=== PATIENT | male | born 1980 | race Caucasian/White ===

== ENCOUNTER 2020-02-08 06:07 | Observation (INO) | payer OTHER ==
[~2020-02-08] VITALS: Ht 172.7 cm; Wt 82.3 kg
[2020-02-08] MEDS ORDERED: SODIUM CHLORIDE 0.9% 1,000ML IVBOLUS ONE (06:30)
[2020-02-08] MEDS ORDERED: SODIUM CHLORIDE FLUSH 10ML SYR IVF ONE (06:30)
[2020-02-08] MEDS ORDERED: ONDANSETRON 2MG/ML, 2ML IVPush ONE (06:30)
--- NOTE | 2020-02-08 06:36 | NUR ---
PT C/O ABD PAIN X1 DAY. PLACED VITAL SIGNS MONITORS. IV PLACED. LAB AT BEDSIDE. CALL LIGHT PLACED WITHIN REACH.
[2020-02-08] MEDS ORDERED: ONDANSETRON 2MG/ML, 2ML ONE ×2 (06:40→10:24)
[2020-02-08 06:54] LABS: BASOPHILS # (AUTO) 0.01 x10^3/uL (0-0.1); BASOPHILS % (AUTO) 0 % (0-1); EOSINOPHILS # (AUTO) 0.02 x10^3/uL (0-0.4); EOSINOPHILS % (AUTO) 0 % (1-7); LYMPHOCYTES # (AUTO) 0.35 x10^3/uL (1-3.4); LYMPHOCYTES % (AUTO) 7 % (22-44); MD NO; MEAN CORPUSCULAR HEMOGLOBIN 32.6 pg (27.5-34.5); MEAN CORPUSCULAR HGB CONC 33.6 g/dL (33.2-36.2); MEAN PLATELET VOLUME 8.7 fL (7.4-10.4); MONOCYTES # (AUTO) 0.07 x10^3/uL (0.2-0.8); MONOCYTES % (AUTO) 1 % (2-9); NEUTROPHILS # (AUTO) 4.73 x10^3/uL (1.8-6.8); NEUTROPHILS % (AUTO) 91 % (42-75); PLATELET COUNT 174 x10^3/uL (130-400); RED BLOOD COUNT 4.55 x10^6/uL (4.38-5.82); RED CELL DISTRIBUTION WIDTH 12.8 % (9.4-14.8)
--- NOTE | 2020-02-08 06:57 | NUR ---
REPORT GIVEN TO JHONATHAN CUELLAR.
--- NOTE | 2020-02-08 07:00 | NUR ---
REPORT FROM AMOL, ASSUME CARE OF PT AT THIS TIME. PT PROVIDED URINAL FOR UA. WARM BLANKET PROVIDED PER REQUEST.
[2020-02-08 07:01] LABS: ALANINE AMINOTRANSFERASE 33 U/L (12-78); ALBUMIN 4.2 g/dL (3.4-5.0); ANION GAP 12 mmol/L (5-15); CALCIUM 9.4 mg/dL (8.5-10.1); CHLORIDE 108 mmol/L (98-107)
[2020-02-08 07:03] LABS: ALKALINE PHOSPHATASE 62 U/L (45-117); BILIRUBIN,TOTAL 1.4 mg/dL (0.2-1.0); TOTAL PROTEIN 7.7 g/dL (6.4-8.2)
--- NOTE | 2020-02-08 07:11 | NUR ---
PT UNABLE TO PROVIDE UA. PT UPDATED ON RESULTS. PT STATES "FEELING BETTER". LIGHTS DIMMED. VSS/UPDATED IN COMPUTER. CALL LIGHT WITHIN REACH.
--- NOTE | 2020-02-08 07:24 | NUR ---
PT TO CT.
[2020-02-08] MEDS ORDERED: MORPHINE SULFATE 4 MG/ML, 1ML IVPush PRN (07:30)
--- NOTE | 2020-02-08 07:45 | NUR ---
CT RESULTS BACK, PT FOR RECHECK. PT IN GOWN, ALL OTHER CLOTHING REMOVED AND TO BELONGING BAG. PT'S LAST MEAL LUNCH YESTERDAY, GATORADE AND WATER AT 0300.
[2020-02-08] MEDS ORDERED: OMNIPAQUE 350 MG/ML, 100ML BOTTLE ONE ×2 (07:46→08:25)
[2020-02-08] MEDS ORDERED: CEFOTETAN PMX 1GM/50ML 50 ML ONE (08:09)
[2020-02-08] MEDS ORDERED: CEFOTETAN PMX 1GM/50ML 50 ML IV ONE (08:30)
--- NOTE | 2020-02-08 08:33 | NUR ---
CEFOTETAN INFUSING. RAPID COVID SWAB COMPLETED, WALKED TO LAB.
--- NOTE | 2020-02-08 08:43 | NUR ---
REPORT TO MARY JO CADE READY FOR TRANSPORT TO FLOOR.
--- NOTE | 2020-02-08 08:59 | NUR ---
REPORT TO YAYA OR.
[2020-02-08] MEDS ORDERED: BUPIVACAINE/PF-EPI 0.5% 1:200K ONE (09:23)
[2020-02-08 09:26] VITALS: BP 112/65
[2020-02-08] MEDS ORDERED: CHLORHEXIDINE 15 ML UDC ONE (09:31)
[2020-02-08] MEDS ORDERED: MIDAZOLAM 1 MG/ML, 2ML ONE (09:56)
[2020-02-08] MEDS ORDERED: FENTANYL PF 100 MCG/2ML ONE ×2 (09:56→10:14)
[2020-02-08] MEDS ORDERED: CHLORHEXIDINE 15 ML UDC MM ONE (10:00)
[2020-02-08] MEDS ORDERED: BUPIVACAINE/EPI 0.5% 1:200K IM ONE (10:22)
[2020-02-08] MEDS ORDERED: NEOSTIGMINE 1 MG/ML, 10ML ONE (10:24)
[2020-02-08] MEDS ORDERED: SUCCINYLCHOLINE 20 MG/ML, 10ML ONE (10:24)
[2020-02-08] MEDS ORDERED: ROCURONIUM 10MG/ML,5ML ONE (10:24)
[2020-02-08] MEDS ORDERED: PROPOFOL 10 MG/ML, 20ML ONE (10:24)
[2020-02-08] MEDS ORDERED: GLYCOPYRROLATE 0.2MG/1ML, 5ML ONE (10:24)
[2020-02-08] MEDS ORDERED: CEFAZOLIN 1,000 MG ONE (10:24)
[2020-02-08] MEDS ORDERED: LIDOCAINE-MPF 2% ,5ML ONE (10:24)
[2020-02-08] MEDS ORDERED: DEXAMETHASONE 4 MG/ML, 1ML ONE (10:24)
[2020-02-08] MEDS ORDERED: ACETAMINOPHEN 325 MG TABLET PO PRN (10:30)
[2020-02-08] MEDS ORDERED: PROMETHAZINE 25 MG/ML, 1ML IVPush PRN (10:30)
[2020-02-08] MEDS ORDERED: PROMETHAZINE 25 MG SUPP PR PRN (10:30)
[2020-02-08] MEDS ORDERED: FENTANYL PF 100 MCG/2ML IV PRN (10:30)
[2020-02-08] MEDS ORDERED: OXYcodone 5 MG/5 ML ORAL.SOL UDC PO PRN (10:30)
[2020-02-08] MEDS ORDERED: ONDANSETRON 2MG/ML, 2ML IVPush PRN (10:30)
[2020-02-08] MEDS ORDERED: LORazepam 2 MG/ML, 1ML IVPush PRN (10:30)
[2020-02-08] MEDS ORDERED: MEPERIDINE/PF 25MG/0.5ML IVPush PRN (10:30)
[2020-02-08] MEDS ORDERED: HYDROmorphone 1 MG/ML, 1ML INJ IVPush PRN (10:30)
[2020-02-08] MEDS ORDERED: MEPERIDINE/PF 25MG/ML,1ML ONE (10:53)
[2020-02-08] MEDS ORDERED: SUGAMMADEX 200 MG/2 ML IVPush ONE (10:58)
[2020-02-08] MEDS ORDERED: KETOROLAC 30 MG/1 ML ONE (11:05)
[2020-02-08] MEDS ORDERED: MEPERIDINE/PF 25MG/0.5ML IVPush ONE (11:30)
[2020-02-08] MEDS ORDERED: KETOROLAC 30 MG/1 ML IVPush ONE (11:30)
[2020-02-08 14:46] VITALS: BP 113/68
[2020-02-08] MEDS ORDERED: OXYC-302 PO (14:47)
[2020-02-08] MEDS ORDERED: POLY17PO5 PO (14:48)
== END 2020-02-08 15:30 | disposition home or self-care (01) ==
LOC: ED 06:39 → EDIP 08:14 → 4NE 08:54 → DCLOUNGE 15:23
PROVIDERS: ADMIT Colon & Rectal Surgery; ATTEND Colon & Rectal Surgery
DX: K35.80 Unspecified acute appendicitis (principal); R11.2 Nausea with vomiting, unspecified
CPT/HCPCS: 36415; 44970; 74177; 80053; 85025; 87635; 88304; 96361; 96374; 96375; 99285; C1729; G0378; J0330; J0690; J1100; J1885; J2175; J2250; J2405; J2704; J2710; J3010; J3490; J7030; Q9967

== ENCOUNTER 2020-02-10 15:23 | Emergency (ER) | payer OTHER ==
[~2020-02-10] VITALS: Ht 172.7 cm; Wt 86.6 kg
[~2020-02-10 15:23] MED LIST: OXYC-302 PO; POLY17PO5 PO
--- NOTE | 2020-02-10 15:50 | NUR ---
FIRST CONTACT WITH PT. PT HAS APPENDIX REMOVED ON WEDNESDAY, NOW I HAVE A FEVER. PT DENIES N/V/ABD PAIN. NO REDNESS/SWELLING/PAIN ON SURGICAL WOUND. PT'S AOX4. RESPS EVEN AND UNLABORED. BP/SPO2 MONITORS IN PLACE. CALL LIGHT WITHIN REACH/ EDMD AT BEDSIDE TO EVALUATE AT THIS TIME.
--- NOTE | 2020-02-10 15:53 | NUR ---
PT AMB TO BR WITH STEADY GAIT. URINE CUP GIVEN.
[2020-02-10] MEDS ORDERED: SODIUM CHLORIDE FLUSH 10ML SYR IVF ONE (16:00)
--- NOTE | 2020-02-10 16:01 | NUR ---
URINE COLLECTED AND UA SENT.
[2020-02-10 16:18] LABS: MICROSCOPIC NOT IND
[2020-02-10 16:27] LABS: BASOPHILS # (AUTO) 0.01 x10^3/uL (0-0.1); BASOPHILS % (AUTO) 0 % (0-1); EOSINOPHILS # (AUTO) 0.02 x10^3/uL (0-0.4); EOSINOPHILS % (AUTO) 1 % (1-7); LYMPHOCYTES # (AUTO) 0.39 x10^3/uL (1-3.4); LYMPHOCYTES % (AUTO) 8 % (22-44); MD NO; MEAN CORPUSCULAR HEMOGLOBIN 32.6 pg (27.5-34.5); MEAN CORPUSCULAR HGB CONC 33.8 g/dL (33.2-36.2); MEAN CORPUSCULAR VOLUME 96.6 fL (81-97); MEAN PLATELET VOLUME 8.8 fL (7.4-10.4); MONOCYTES # (AUTO) 0.38 x10^3/uL (0.2-0.8); MONOCYTES % (AUTO) 8 % (2-9); NEUTROPHILS # (AUTO) 3.97 x10^3/uL (1.8-6.8); NEUTROPHILS % (AUTO) 83 % (42-75); PLATELET COUNT 139 x10^3/uL (130-400); RED CELL DISTRIBUTION WIDTH 12.6 % (9.4-14.8)
[2020-02-10 16:29] LABS: ALBUMIN 3.4 g/dL (3.4-5.0); ANION GAP 7 mmol/L (5-15); CALCIUM 8.4 mg/dL (8.5-10.1); CHLORIDE 99 mmol/L (98-107); CREATININE 1.14 mg/dL (0.7-1.3)
--- NOTE | 2020-02-10 16:51 | NUR ---
PIV EST ON R HAND WITH NO COMPLICATIONS. PT TOLERATED WELL. WARM BLANKET GIVEN PER REQUEST.
--- NOTE | 2020-02-10 17:08 | NUR ---
ONE MORE WARM BLANKET GIVEN AT THIS TIME. PT'S AOX4. RESPS EVEN AND UNLABORED. BP/SPO2 MONITORS IN PLACE. CALL LIGHT WITHIN REACH. SITA. VSS.
--- NOTE | 2020-02-10 17:18 | NUR ---
Maricruz billingsley in [facility] - 02/10/20 at 1718 by RAMIN HOSPITALIST AT BEDSIDE AT THIS TIME.
--- NOTE | 2020-02-10 17:18 | NUR ---
PT TO CT AT THIS TIME.
[2020-02-10] MEDS ORDERED: OMNIPAQUE 350 MG/ML, 100ML BOTTLE ONE (17:36)
--- NOTE | 2020-02-10 17:52 | NUR ---
PT BACK TO ROOM FROM CT AT THIS TIME.
--- NOTE | 2020-02-10 18:15 | NUR ---
PT AMB TO BR WITH STEADY GAIT.
--- NOTE | 2020-02-10 18:23 | NUR ---
PT BACK TO ROOM FROM WITH STEADY GAIT.
--- NOTE | 2020-02-10 18:29 | NUR ---
EDMD AT BEDSIDE TO EXPLAIN ALL RESULTS AT THIS TIME.
--- NOTE | 2020-02-10 18:45 | NUR ---
REPORT GIVEN TO AMOL CUELLAR.
--- NOTE | 2020-02-10 18:45 | NUR ---
ASSUMED CARE OF PT, PT RESTING WATCHING TV. CALL LIGHT WITHIN REACH.
[2020-02-10] MEDS ORDERED: ACETAMINOPHEN 500 MG TABLET ONE (19:16)
[2020-02-10] MEDS ORDERED: ACETAMINOPHEN 500 MG TABLET PO ONE (19:30)
[2020-02-10] MEDS ORDERED: SODIUM CHLORIDE 0.9% 1,000ML IVBOLUS ONE (19:30)
--- NOTE | 2020-02-10 19:31 | NUR ---
IS PROVIDED TO PT.
[2020-02-10 20:09] VITALS: BP 128/79
--- NOTE | 2020-02-10 20:36 | NUR ---
ERP AT BEDSIDE FOR UPDATE ON POC. VSS.
== END 2020-02-10 20:52 | disposition home or self-care (01) ==
LOC: ED 15:51
DX: R50.9 Fever, unspecified (principal); Z90.89 Acquired absence of other organs
CPT/HCPCS: 36415; 74177; 80048; 81003; 82040; 83605; 85025; 87040; 99285; J7030; Q9967